=== PATIENT | female | born 2000 | race African-American/Black ===

== ENCOUNTER 2024-05-23 21:29 | Emergency (ER) | payer SELFPAY ==
[2024-05-23 21:30] VITALS: BP 130/89
--- NOTE | 2024-05-23 23:31 | ED.GENMED ---
History of Present Illness
General
Chief Complaint: Eye Problems
Source: patient
Exam Limitations: none
Time Seen by Provider: 05/23/24 23:06
Nursing documentation reviewed up to this point in time: agreed with
History of Present Illness
History of Present Illness:
pt is a 23 y/o F with no sig pmh
here with b/l eye itching, irritation, redness, weepy drainage x 1 day
started in L and progressed to R
boyfriend with similar sypmtoms
some sneezing
no fever/chills/cough/cold symptoms
she has not had any eye pain, gritty feeling, vision changes
she does not use corrective lenses
Past History
Past History
ED Past Medical History: None; Negative Asthma, HTN, Hypercholesterolemia or NIDDM
ED Past Surgical History: Other ()
Social History
Tobacco: Non-smoker
Alcohol: None
Drug: None
Personal: Single
Living: with family
Employment: Employed
Review of Systems
Review of Systems
Allergies reviewed?: Yes
All Other Systems: Not applicable
Phy Exam
Physical Exam
Physical Exam:
GENERAL: Alert , in no apparent distress
EYE: pupils equal and reactive
very injected conjunctiva b/l
clear drainage, eyelid mattering, no swelling
no vision changese
NECK: Supple
ENT: b/l TM s clear, pharynx erythematous but no tonsillar hypertrophy or exudates
CARDIAC: Regular rate and rhythm, no edema
LUNGS: Clear breath sounds bilaterally, no acute respiratory distress, no wheezes/rales/rhonchi, occ cough
SKIN: Warm and dry, skin intact.
PSYCH: Normal and appropriate interaction.
Course
Orders/Labs/Results
Orders:
Orders
05/23/24 23:42
Diphenhydramine [Benadryl] 50 mg PO NOW STA
Vital Signs
Initial and Last Documented VS:
Initial Vital Signs
Temp Pulse Resp BP Pulse Ox
36.9 C 84 18 130/89 100
05/23/24 21:30 05/23/24 21:30 05/23/24 21:30 05/23/24 21:30 05/23/24 21:30
Last Documented Vital Signs
Temp Pulse Resp BP Pulse Ox
36.9 C 84 18 130/89 100
05/23/24 21:30 05/23/24 21:30 05/23/24 21:30 05/23/24 21:30 05/23/24 21:30
MDM/Problems Addressed
Differential Diagnosis Includes:
viral conjunctivitis, allergic conjunctivitis, covid
MDM/Problems Addressed:
23 y/o F
no h/o seasonal allergies
here with b/l eye redness/irritation/drainage/itching
sneezing
has never had seasonal allergies that were significant
nothing taken today
no vision changes, no corrective lenses; uses glasses
b/l conjunctivitis
suspect viral vs allergic
but will cover with abx
*Critical Care Note
Total Time (30-74mins, 75-104mins- exclusive of procedures): Not Applicable
ED Attending Note
-
Portions of this chart may have been created with voice recognition software.� Occasional wrong word or��sound alike� substitutions may have occurred due to the inherent limitations of voice recognition software.
Discharge Plan
Departure
Patient Disposition: Home (Routine Discharge)
Date of Disposition: 05/23/24
Time of Disposition: 23:35
Patient with high blood pressure during this ER visit?: No
Condition: Fair
Covid-19: Not Applicable
Discharge Problem:
Conjunctivitis
Instructions: Conjunctivitis (Pinkeye) (DC)
Prescriptions:
New
cetirizine [Zyrtec] 10 mg tablet
10 mg PO DAILY Qty: 10 0RF
fluticasone propionate [Flonase Allergy Relief] 50 mcg/actuation spray,suspension
2 spray intranasal DAILY Qty: 16 0RF
polymyxin B sulf-trimethoprim 10,000 unit- 1 mg/mL drops
1 drp ophthalmic (eye) QID 5 Days Qty: 10 0RF
No Action
ibuprofen [Advil] 200 mg Tablet
400 mg PO Q6H PRN (Reason: pain)
acetaminophen [acetaminophen] 325 mg tablet
650 mg PO Q4HPRN PRN (Reason: mild pain) Qty: 1 0RF
oxycodone 5 mg tablet
5 mg PO Q4HPRN PRN (Reason: breakthrough/severe pain) Qty: 10 0RF
Referrals:
NONE,* [Family Provider] -
Activity Restrictions/Additional Instructions:
Your itchy watery red eyes are is likely from allergies. Try Zyrtec once a day, Flonase 2 sprays each nostril once a day for the next week.
Apply warm compresses off-and-on.
to cover for potential infection (though if it is infection causing this and not allergies, it's probably viral and these drops may not be needed) use the eye drop 4 times a day for 5 days in each eye
follow up with an eye doctor for any worsening sypmtoms
return for: fever, eye swelling, eye pain, vision changes, facial redness or any concenrs.
Interventions
Interventions:
*Risk Screen - Suicide Last Done: 05/23/24 21:30
*General Assessment Last Done: 05/23/24 21:30
*Neglect/Abuse Screening Last Done: 05/23/24 21:30
*Nursing Disposition Last Done: 05/23/24 23:53
Discharge Date and Time
Discharge Date/Time: 05/23/24 23:53
Print Language: ITALIAN
[2024-05-23] MEDS: BENADRYL 50 MG PO (23:52)
== END 2024-05-23 23:53 | disposition home or self-care (01) ==
LOC: EMR 21:29
PROVIDERS: EMERGENCY PHYSICIAN Student in an Organized Health Care Education/Training Program
DX: H10.9 Unspecified conjunctivitis (principal)
CPT/HCPCS: 99282